=== PATIENT | male | born 1960 | race African-American/Black ===

== ENCOUNTER 2017-06-25 08:49 | Emergency (ER) | payer SELFPAY ==
[~2017-06-25] VITALS: Ht 172.7 cm; Wt 82.0 kg
[2017-06-25 08:52] VITALS: BP 154/92; PULSE 104; RESP 19; TEMP 98.2; O2SAT 99
--- NOTE | 2017-06-25 09:40 | PD ---
HPI Chief Complaint: Skin Problem Time Seen by Provider: 09:17 Travel History International Travel<30 days: No Contact w/Intl Traveler<30days: No Traveled to known affect area: No History of Present Illness HPI This is a 57 year old male who presents to the emergency department with left leg pain. Two months ago he had a bite that was pus filled on his left leg, and since then the left leg has gotten increasingly swollen with stabbing pain, constant, moderate severity, worse with standing and moving his left leg, relieved at rest. (+) subjective fever PFSH Past Medical History Medical History: Denies Significant Hx Social History Narrative Social History chronic homelessness Tobacco Use: Yes Allergies-Medications (Allergen,Severity, Reaction): Coded Allergies: ibuprofen (Verified Allergy, Unknown, skin reaction , 06/25/17) Reported Meds & Prescriptions Reported Meds & Active Scripts Active No Active Prescriptions or Reported Medications Review of Systems Except as stated in HPI: all other systems reviewed are Neg Physical Exam Narrative GENERAL:Well appearing, no acute distress SKIN: Thick, tough skin on both legs, 5 cm ulcer on the left anterior distal tibia with a clean base with no surrounding warmth or redness and no drainage. HEAD: Atraumatic. Normocephalic. EYES: Pupils equal and round. No injection or drainage. ENT: Moist mucous membranes NECK: Trachea midline. CARDIOVASCULAR: Regular rate and rhythm. No murmur appreciated. RESPIRATORY: Clear to auscultation. Breath sounds equal bilaterally. GASTROINTESTINAL: Abdomen soft, non-tender, nondistended. MUSCULOSKELETAL: No obvious deformities. NEUROLOGICAL: Awake and alert. No obvious cranial nerve deficits. Moving all extremities PSYCHIATRIC: Appropriate mood and affect; insight and judgment normal. Data Data Last Documented VS Vital Signs Date Time Temp Pulse Resp B/P (MAP) Pulse Ox O2 Delivery O2 Flow Rate FiO2 06/25/17 08:52 98.2 104 19 154/92 (112) 99 Orders Orders Us Leg Venous Doppler (06/25/17 ) Silver Sulfadia 1% Crm (50 Gm) (Silvaden (06/25/17 10:15) Acetamin-Codeine 300-30 Mg (Tylenol-Code (06/25/17 10:30) MDM Medical Decision Making Medical Screen Exam Complete: Yes Emergency Medical Condition: Yes Interpretation(s) afebrile, tachycardic, hypertensive us: negative for dvt Differential Diagnosis DVT, congestive heart failure, chronic kidney disease, lymphedema, Narrative Course This is a 57-year-old male who presents to the emergency department with swelling of his left lower extremity as well as a poorly healing wound on his left leg which he describes is quite painful. He is homeless. I offered him labs to evaluate for congestive heart failure chronic kidney disease but he refused labs. He says he just wants some antibiotics and pain medicine. He did agree to an ultrasound which is negative for DVT. Patient will be discharged with Silvadene cream and was instructed to wash his wound twice a day with warm soap and water. He was referred to the homeless [facility] for further health care follow-up. Diagnosis Primary Impression: Leg wound, left Qualified Codes: S81.802A - Unspecified open wound, left lower leg, initial encounter Patient Instructions: General Instructions Additional Instructions: Wash your wound twice a day with soap and water. Apply topical antibiotic cream. If you develop fever, increasing redness, warmth, or spreading of your infection, or severe pain return to the emergency department immediately as you may require antibiotics through your IV. Med/Other Pt SpecificInfo: Prescription(s) given Scripts Acetaminophen-Codeine (Tylenol-Codeine #3) 300-30 mg Tab 1-2 TAB PO Q6H Y for PAIN, #15 TAB 0 Refills Prov: Lucie Norman MD 06/25/17 Disposition: 01 DISCHARGE HOME Condition: Stable Lucie Norman MD Jun 25, 2017 09:40
[2017-06-25] MEDS ORDERED: SILVER SULFADIAZINE 1% CR 50 GM JAR TOPICAL ONE (10:15)
[2017-06-25] MEDS ORDERED: ACETAMINOPHEN/CODEINE 300 MG/30 MG TAB PO ONE (10:30)
--- NOTE | 2017-06-25 10:53 | RADRPT ---
EXAM DATE/TIME: 06/25/2017 10:26 [place] COMPARISON: No previous studies available for comparison. INDICATIONS : Left leg pain and swelling. MEDICAL HISTORY : Left leg pain and swelling. SURGICAL HISTORY : None. ENCOUNTER: Initial ACUITY: 4 - 6 months PAIN SCORE: 8/10 LOCATION: Left leg. TECHNIQUE: Venous ultrasound of the leg was performed from the inguinal ligament to the proximal calf. Real-daisy e, color Doppler and spectral tracing, compression and augmentation techniques were used. FINDINGS: There is normal compressibility of the deep venous system from the inguinal region to the proximal ca lf. No echogenic clot is seen in the lumen of the common femoral, femoral, popliteal, and posterior tibial veins. There is a normal response of the venous system to proximal and distal augmentation an d respiration. CONCLUSION: No evidence of deep venous thrombosis within the left lower extremity. Devante Hernandez MD on June 25, 2017 at 10:51 Board Certified Radiologist. This report was verified electronically.
[2017-06-25] MEDS ORDERED: TYLETAB34 PO (10:59)
== END 2017-06-25 11:41 | disposition home or self-care (01) ==
LOC: NEPD 08:49
DX: S81.802A Unspecified open wound, left lower leg, initial encounter (principal); X58.XXXA Exposure to other specified factors, initial encounter; Z59.0 Homelessness; Z72.0 Tobacco use
CPT/HCPCS: 93971; 99284